=== PATIENT | female | born 1970 | race Caucasian/White ===

== ENCOUNTER → 2023-06-15 11:17 | Outpatient (BNVA) | payer BC, SELFPAY | PROVIDERS: PCP Family Medicine; Visit Provider Internal Medicine | DX: M79.642 Pain in left hand (principal); M79.641 Pain in right hand; R51.9 Headache, unspecified | CPT/HCPCS: 36415; 80053; 83520; 85025; 85651; 86140; 86160; 86162; 86200; 86235; 86255; 86376; 86480; 86704; 86803; 87340 ==